=== PATIENT | male | born 1960 | race Caucasian/White ===

== ENCOUNTER 2019-02-21 17:21 | Emergency (ER) | payer BC ==
--- NOTE | 2019-02-21 18:08 | ED PDOC ---
HPI: Male Pain Time Seen by Provider: 02/21/19 17:34 Chief Complaint (Nursing): Male Genitourinary Chief Complaint (Provider): Male Genitourinary History Per: Patient Onset/Duration Of Symptoms: Days Current Symptoms Are (Timing): Still Present Additional Complaint(s): 59 y/o male with a PMHx of HTN and Arthritis presents to the ED for evaluation of right testicular pain. Patient reports that of noting dysuria, difficulty with urinary stream and hematuria since Thursday. Patient additionally reports of having subjective fever and chills since last Thursday associated with URI symptoms and thought it was due to that. Patient notes of experiencing some low back pain. Patient states that slowly over the course of today, he began to have right testicular pain that has been worsening since onset. Patient describes pain as throbbing and constant and worsens with any palpation. Patient believes there is swelling to the right scrotal area. Patient reports pain radiates to the right groin. Patient notes of taking Ibuprofen with minimal relief of pain. PMD: Dr. Marquez Past Medical History Reviewed: Historical Data, Nursing Documentation, Vital Signs Vital Signs: Last Vital Signs Temp 100.1 F H 02/21/19 17:32 Pulse 95 H 02/21/19 17:32 Resp 18 02/21/19 17:32 BP 143/78 02/21/19 17:32 Pulse Ox 97 02/21/19 17:32 - Medical History PMH: Arthritis, HTN - Surgical History Surgical History: No Surg Hx - Family History Family History: States: Hypertension - Social History Current smoker - smoking cessation education provided: No Alcohol: None Drugs: Denies - Home Medications Home Medications: Ambulatory Orders Medication Instructions Recorded Acetaminophen [Tylenol Extra 1,000 mg PO Q6 PRN #100 tablet 02/21/19 Strength] Ibuprofen [Motrin Tab] 600 mg PO Q8 PRN #60 tab 02/21/19 Levofloxacin [Levaquin] 500 mg PO BID #28 tablet 02/21/19 - Allergies Allergies/Adverse Reactions: Allergies Allergy/AdvReac Type Severity Reaction Status Date / Time No Known Allergies Allergy Verified 02/21/19 17:32 Review of Systems ROS Statement: Except As Marked, All Systems Reviewed And Found Negative (as per HPI) Constitutional: Positive for: Fever, Chills Genitourinary Male: Positive for: Dysuria, Hematuria, Scrotal Pain (right), Other (right testicular pain, difficulty with stream, right groin pain) Musculoskeletal: Positive for: Back Pain Physical Exam - Reviewed Nursing Documentation Reviewed: Yes Vital Signs Reviewed: Yes - Physical Exam Appears: Positive for: In Acute Distress (mild, painful distress) Skin: Negative for: Rash Gastrointestinal/Abdominal: Positive for: Soft, Distended (slight distention across the lower abdomen ), Guarding (some voluntary guarding at the suprapubic area) Male Genital Exam: Positive for: inguinal tenderness (Some right inguinal tednerness to palpation), testicular tenderness (R) (Exquisite tenderness to palpation of the right testicule), other (Performed with MALIHA Gutiérrez as head chef. Subtle edema of the right scrotal area. Normal cremasteric reflex. Questionable abnormal lie of the right testicle.). Negative for: lesions Lymphatic: Negative for: Inguinal Node Tenderness - Laboratory Results Result Diagrams: 02/21/19 18:00 02/21/19 18:00 - ECG O2 Sat by Pulse Oximetry: 97 (RA) Pulse Ox Interpretation: Normal Medical Decision Making Medical Decision Making: Time: 1744 Impression: Dysuria and Right Testicular Pain Differentials include but not limited to UTI, epididymitis, orchitis, hernia, cystitis and testicular torsion Plan: -- Type and Screen -- CMP -- Lact Acid, Plasma -- ED Urine Dipstick -- CBC with Differential -- PTT -- Prothrombin Time -- Chlamydia/GC RNA, TMA -- Morphine 2 mg IVP -- Toradol 15 mg IVP -- Tylenol 975 mg PO -- Blood Culture -- Urine Culture -- IV Insertion -- Urinalysis -- US Testes Duplex Complete Accession No. : [id number] Patient Name / ID : ZECHARIAH NASSAR / [id number] Exam Date : 02/21/2019 18:27:52 ( Approved ) Study Comment : Sex / Age : M / 59Y Creator : John Fontanez MD Dictator : John Fontanez MD Body Maker Machine Setter : Joinery Patternmaker : John Fontanez MD Approver2 : Report Date : 02/21/2019 18:51:39 My Comment : Date of service: 02/21/2019 HISTORY: severe RIGHT testicular pain TECHNIQUE: Realtime sonography through the scrotum with color and doppler flow. COMPARISON: None Available. FINDINGS: RIGHT TESTICLE: Measures 2.1 x 2.7 x 3.4 cm. Normal echo characteristics common no focal masses. Marked hypervascularity. RIGHT EPIDIDYMIS: Epididymal head measures 0.7 x 0.9 cm. Grossly unremarkable appearance with normal flow. LEFT TESTICLE: Measures 1.8 x 1.8 x 3.0 cm. Normal echotexture and flow. LEFT EPIDIDYMIS: Epididymal head measures 0.7 x 0.9 cm. Grossly unremarkable appearance with normal flow. HYDROCELE: Trace, unilateral-left. Likely physiological. VARICOCELE: None. OTHER FINDINGS: None. IMPRESSION: Hypervascular right testicle consistent with orchitis. Documented flow to both testicles without evidence of testicular torsion. Labs c/w UTI and early systemic infection (mild leukocytosis) DW pt findings. Pt will be given dose of IV Levaquin in ER to initiate treatment for UTI/orchitis and then discharged on oral levaquin with urgent followup with PMD/Urology. Scribe Attestation: Documented by Attila Basilio, acting as a scribe Heriberto Baldwin MD. Provider Scribe Attestation: All medical record entries made by the Scribe were at my direction and personally dictated by me. I have reviewed the chart and agree that the record accurately reflects my personal performance of the history, physical exam, medical decision making, and the department course for this patient. I have also personally directed, reviewed, and agree with the discharge instructions and disposition. Disposition - Clinical Impression Clinical Impression: Cystitis, Orchitis Counseled Patient/Family Regarding: Studies Performed, Diagnosis, Need For Followup, Rx Given - Disposition Referrals: Nasim Kingston MD [Staff Provider] - (PLEASE CALL TOMORROW FOR FOLLOWUP APPOINTMENT BY THE END OF THE WEEK) Michael Massey MD [Medical Doctor] - (FOLLOWUP WITH YOUR DOCTOR OR UROLOGIST IN 48 HOURS FOR REEVALUATION.) Disposition: Routine/Home Disposition Time: 20:00 Condition: STABLE Additional Instructions: Orchitis Definition Orchitis (or-THEO-tis) is an inflammation of one or both testicles. It is usually caused by a bacterial infection or by the mumps virus. Bacterial orchitis can be caused by sexually transmitted infections (STIs), particularly gonorrhea or chlamydia. Bacterial orchitis often results from epididymitis, an inflammation of the coiled tube (epididymis) at the back of the testicle that stores and carries sperm. In that case, it's called epididymo-orc hitis. Orchitis causes pain and can affect fertility. Medication can treat the causes of bacterial orchitis and can ease some signs and symptoms of viral orchitis. But it may take several weeks for scrotal tenderness to disappear. Symptoms Orchitis signs and symptoms usually develop suddenly and may include: * Swelling in one or both testicles * Pain ranging from mild to severe * Tenderness in one or both testicles, which may last for weeks * Fever * Nausea and vomiting The terms "testicle pain" and "groin pain" are sometimes used interchangeably. But groin pain occurs in the fold of skin between the thigh and abdomen not in the testicle. The causes of groin pain are different from the causes of testicle pain. When to see a doctor If you experience pain or swelling in your scrotum, especially if the pain occurs suddenly, see your doctor right away. A number of conditions can cause testicle pain, and some of the conditions require immediate treatment. One such condition involves twisting of the spermatic cord (testicular torsion), which may cause pain similar to that caused by orchitis. Your doctor can perform tests to determine which condition is causing your pain. Causes Orchitis can be caused by a bacterial or viral infection. Sometimes a cause of orchitis can't be determined (idiopathic orchitis). Bacterial orchitis Most often, bacterial orchitis is the result of epididymitis. Epididymitis usually is caused by an infection of the urethra or bladder that spreads to the epididymis. Often, the cause of the infection is an STI. Other causes of infection may be related to having been born with abnormalities in your urinary tract or having had a catheter or medical instruments inserted into your penis. Viral orchitis Viral orchitis is usually caused by the mumps virus. About one-third of males who contract the mumps after puberty develop orchitis, usually four to seven days after onset of the mumps. Risk factors Risk factors for nonsexually transmitted orchitis include: * Not being immunized against mumps * Having recurring urinary tract infections * Having surgery that involves the genitals or urinary tract * Being born with an abnormality in the urinary tract Sexual behaviors that can lead to STIs put you at risk of sexually transmitted orchitis. Those behaviors include having: * Multiple sexual partners * Sex with a partner who has an STI * Sex without a condom * A personal history of an STI Complications Complications of orchitis may include: * Testicular atrophy. Orchitis may eventually cause the affected testicle to shrink. * Scrotal abscess. The infected tissue fills with pus. * Repeated epididymitis. Orchitis can lead to recurrent episodes of epididymitis. * Infertility. Occasionally, orchitis may cause infertility or inadequate testosterone production (hypogonadism). But infertility and hypogonadism are less likely if orchitis affects only one testicle. * Infertility. Occasionally, orchitis may cause infertility. But infertility is less likely if orchitis affects only one testicle. Preparing for your appointment You may be referred to a doctor who specializes in urinary issues (urologist). To get all the information you need from your doctor, it helps to be well-prepa red for your appointment. Here's how. What you can do * Make a list of your symptoms, including any that may seem unrelated to the reason for which you scheduled the appointment. * Give your doctor a history of your childhood illnesses and immunizations. Also, be sure to let your doctor know about any recent illnesses, especially STIs. * Make a list of all medications, vitamins or supplements that you're currently taking. * Write down questions to ask your doctor. Preparing questions ahead of time will help you make the most of your time with your doctor. List your questions from most important to least important. For orchitis, some basic questions to ask your doctor include: * What's the most likely cause of my symptoms? * Are there any other possible causes? * What kinds of tests do I need? What's involved in those tests? * What treatments are available for orchitis? * How long will it take before I start to feel better? * Will this affect my ability to have children? * Are there any restrictions on sexual activity that I need to follow? Don't hesitate to ask other questions that arise during your appointment. What to expect from your doctor Your doctor is likely to ask you a number of questions. Being ready to answer them may reserve time to go over any points you want to spend more time on. Your doctor may ask: * When did you first begin experiencing symptoms? * How severe are your symptoms? * What treatments have you tried on your own? * What, if anything, seems to improve your symptoms? * What, if anything, appears to worsen your symptoms? * Have you had mumps or mumps vaccine? If so, when? * Have you had an STI? * Do you practice safe sex, such as using a condom? Tests and diagnosis Your doctor is likely to start with a physical exam to check for enlarged lymph nodes in your groin and an enlarged testicle on the affected side. Your doctor may also do a rectal examination to check for prostate enlargement or tenderness. After that, your doctor may recommend: * STI screening. A narrow swab is inserted into the end of your penis to obtain a sample of discharge from your urethra. The sample is checked in the laboratory for gonorrhea and chlamydia. * Urine test. A sample of your urine is analyzed for abnormalities in appearance, concentration or content. * Ultrasound. This imaging test may be used to rule out testicular torsion. Ultrasound with color Doppler can determine if the blood flow to your testicles is lower than normal indicating torsion or higher than normal, which helps confirm the diagnosis of orchitis. * Nuclear scan of the testicles. A radioactive tracer is inserted into your bloodstream. The scanner then maps blood flow to your testicles, which can indicate torsion or orchitis. Treatments and drugs Treatment depends on the cause of orchitis. Treating bacterial orchitis Antibiotics are needed to treat bacterial orchitis and epididymo-orchitis. If the cause of the bacterial infection is an STI, your sexual partner also needs treatment. Be sure to take the entire course of antibiotics prescribed by your doctor, even if your symptoms ease sooner, to ensure that the infection is gone. It may take several weeks for the tenderness to disappear. Resting, supporting the scrotum with an athletic strap, applying ice packs and taking pain medication can help relieve discomfort. Treating viral orchitis Treatment is aimed at relieving symptoms. Your doctor may recommend: * Nonsteroidal anti-inflammatory drugs, such as ibuprofen (Advil, Motrin IB, others) or naproxen (Aleve, others) * Bed rest and elevating your scrotum * Cold packs Most people with viral orchitis start to feel better in three to 10 days, although it may take several weeks for the scrotal tenderness to disappear. Treating idiopathic orchitis Your doctor may recommend antibiotics and anti-inflammatory medications. Lifestyle and home remedies To ease your discomfort: * Rest in bed * Lie down so that your scrotum is elevated * Apply cold packs to your scrotum as tolerated * Avoid lifting heavy objects Prevention To prevent orchitis: * Get immunized against mumps, the most common cause of viral orchitis * Practice safe sex, to help protect against STIs that can cause bacterial orchitis Prescriptions: Acetaminophen [Tylenol Extra Strength] 1,000 mg PO Q6 PRN #100 tablet PRN Reason: FEVER OR PAIN Ibuprofen [Motrin Tab] 600 mg PO Q8 PRN #60 tab PRN Reason: Pain, Moderate (4-7) Levofloxacin [Levaquin] 500 mg PO BID #28 tablet Instructions: Acute Cystitis (DC) Forms: [facility] ED School/Work Excuse
[2019-02-21 18:20] LABS: BASO % 0.2 % (0.0-2.0); EOS % 0.2 % (0.0-4.0); HEMOGLOBIN 13.9 g/dL (12.0-18.0); LYMPH # 0.7 K/uL (1.0-4.3); LYMPH % 5.8 % (20.0-40.0); MEAN CELL VOLUME 87.4 fl (80.0-94.0); MEAN CORPUSCULAR HEMOGLOBIN 29.6 pg (27.0-31.0); MEAN CORPUSCULAR HGB CONC 33.9 g/dL (33.0-37.0); MEAN PLATELET VOLUME 7.9 fl (7.2-11.7); MONO % 8.2 % (0.0-10.0); NEUT # 10.1 K/uL (1.8-7.0); NEUT % 85.6 % (50.0-75.0); PLATELET COUNT 231 K/uL (130-400); RBC 4.68 Mil/uL (4.40-5.90); RED CELL DISTRIBUTION WIDTH 12.9 % (11.5-14.5); WHITE BLOOD COUNT 11.8 K/uL (4.8-10.8)
[2019-02-21 18:32] LABS: INR 1.1
[2019-02-21 18:33] LABS: ALB/GLOB RATIO 1.3 (1.0-2.1); ALBUMIN 4.2 g/dL (3.5-5.0); ALT/SGPT 36 U/L (21-72); AST/SGOT 22 U/L (17-59); BLOOD UREA NITROGEN 18 mg/dl (9-20); GFR NON-AFRICAN AMERICAN > 60
[2019-02-21 18:34] LABS: PARTIAL THROMBOPLASTIN TIME 29.6 Seconds (25.6-37.1)
--- NOTE | 2019-02-21 18:55 | US ---
Date of service: 02/21/2019 HISTORY: severe RIGHT testicular pain TECHNIQUE: Realtime sonography through the scrotum with color and doppler flow. COMPARISON: None Available. FINDINGS: RIGHT TESTICLE: Measures 2.1 x 2.7 x 3.4 cm. Normal echo characteristics common no focal masses. Marked hypervascularity. RIGHT EPIDIDYMIS: Epididymal head measures 0.7 x 0.9 cm. Grossly unremarkable appearance with normal flow. LEFT TESTICLE: Measures 1.8 x 1.8 x 3.0 cm. Normal echotexture and flow. LEFT EPIDIDYMIS: Epididymal head measures 0.7 x 0.9 cm. Grossly unremarkable appearance with normal flow. HYDROCELE: Trace, unilateral-left. Likely physiological. VARICOCELE: None. OTHER FINDINGS: None. IMPRESSION: Hypervascular right testicle consistent with orchitis. Documented flow to both testicles without evidence of testicular torsion.
[2019-02-21] MEDS ORDERED: levoFLOXacin 500 mg in D5W 500 MG/100 ML BAG IVPB STA (19:24)
[2019-02-21] MEDS ORDERED: levoFLOXacin 500 mg in D5W 500 MG/100 ML BAG IVPB ONE (19:32)
[2019-02-21 19:50] LABS: SQUAMOUS EPITHIAL < 1 /hpf (0-5); URINE BACTERIA OCC (<OCC); URINE BILIRUBIN NEGATIVE (NEGATIVE); URINE BLOOD LARGE (NEGATIVE); URINE CLARITY CLOUDY (Clear); URINE COLOR YELLOW (YELLOW); URINE GLUCOSE (UA) NEG (NEGATIVE); URINE LEUKOCYTE ESTERASE LARGE Leu/uL (Negative); URINE PROTEIN 100 mg/dL (NEGATIVE); URINE UROBILINOGEN 0.2-1.0 mg/dL (0.2-1.0)
[2019-02-21 19:53] LABS: EOSINOPHIL 1 % (0-7); LYMPHOCYTE 8 % (20-50); MONOCYTE 9 % (0-10); NEUTROPHIL 82 % (42-75); PLATELET ESTIMATE NORMAL (NORMAL); TOTAL CELLS COUNTED 100
[2019-02-21] MEDS ORDERED: Sodium Chloride 0.9% 500 ML IV STA (20:08)
[2019-02-22 00:17] VITALS: BP 147/94; PULSE 102; RESP 20; TEMP 99.9
[2019-02-22] MEDS ORDERED: levoFLOXacin 500 mg in D5W 500 MG/100 ML BAG IVPB SCH (09:00)
[2019-02-22 09:01] VITALS: O2SAT 97
== END 2019-02-21 23:40 | disposition home or self-care (01) ==
LOC: H.ER 17:21
DX: N45.3 Epididymo-orchitis (principal); N30.91 Cystitis, unspecified with hematuria; I10 Essential (primary) hypertension
CPT/HCPCS: 80053; 81003; 83605; 85025; 85610; 85730; 86850; 86900; 87040; 87086; 87491; 87591; 93975; 96361; 96365; 96375; 99284; J1885; J2270; J7030

== ENCOUNTER 2019-02-25 16:58 | Inpatient (IN) | payer BC ==
--- NOTE | 2019-02-25 17:32 | ED PDOC ---
HPI: Male Pain Time Seen by Provider: 02/25/19 17:02 Chief Complaint (Nursing): Male Genitourinary Chief Complaint (Provider): RIGHT groin pain History Per: Patient, Family History/Exam Limitations: no limitations Associated Symptoms: Fever, Chills. denies: Nausea, Vomiting Additional Complaint(s): Diagnosed with RIGHT orchitis UTI 02/21. On levaquin but reports minimal relief of swelling and pain of RIGHT testicle. Seen by Dr Lainez Urology who recommended pt to to ER for further evaluatuion and possible admission. Past Medical History Reviewed: Historical Data, Nursing Documentation, Vital Signs Vital Signs: Last Vital Signs Temp 98.3 F 02/25/19 17:00 Pulse 56 L 02/25/19 17:00 Resp 18 02/25/19 17:00 BP 147/86 02/25/19 17:00 Pulse Ox 100 02/25/19 17:00 Primary Care Physician: Non CPH Provider - Medical History PMH: Arthritis, HTN - Family History Family History: States: Hypertension - Social History Current smoker - smoking cessation education provided: No - Home Medications Home Medications: Ambulatory Orders Medication Instructions Recorded Acetaminophen [Tylenol Extra 1,000 mg PO Q6 PRN #100 tablet 02/21/19 Strength] Ibuprofen [Motrin Tab] 600 mg PO Q8 PRN #60 tab 02/21/19 Levofloxacin [Levaquin] 500 mg PO BID #28 tablet 02/21/19 Irbesartan/Hydrochlorothiazide 1 tab PO DAILY 02/25/19 [Irbesartan-Hctz 300-12.5 mg Tb] - Allergies Allergies/Adverse Reactions: Allergies Allergy/AdvReac Type Severity Reaction Status Date / Time No Known Allergies Allergy Verified 02/21/19 17:32 Review of Systems ROS Statement: Except As Marked, All Systems Reviewed And Found Negative Constitutional: Positive for: Fever, Chills Genitourinary Male: Positive for: Scrotal Pain Physical Exam - Reviewed Nursing Documentation Reviewed: Yes Vital Signs Reviewed: Yes - Physical Exam Appears: Positive for: Non-toxic, In Acute Distress Head Exam: Positive for: ATRAUMATIC, NORMOCEPHALIC Skin: Positive for: Warm, Dry Eye Exam: Positive for: EOMI, PERRL ENT: Positive for: Pharynx Is (clear) Neck: Positive for: Painless ROM, Supple Cardiovascular/Chest: Positive for: Regular Rate, Rhythm. Negative for: Murmur Respiratory: Negative for: Respiratory Distress Gastrointestinal/Abdominal: Positive for: Soft. Negative for: Tenderness Male Genital Exam: Positive for: inguinal tenderness (right), scrotum tenderness (R), testicular tenderness (R), other (TTP right scrotum) Back: Positive for: Normal Inspection. Negative for: L CVA Tenderness, R CVA Tenderness Extremity: Positive for: Normal ROM. Negative for: Deformity Lymphatic: Positive for: Other (tenderness in area of RIGHT inguinal folds and pubic area, no discrete mass/nodules palpable) Neurological/Psych: Positive for: Awake, Alert. Negative for: Motor/Sensory Deficits - Laboratory Results Result Diagrams: 02/25/19 17:55 02/25/19 17:55 - ECG O2 Sat by Pulse Oximetry: 100 - Progress ED Course And Treament: DW Dr Gaxiola Urology Pt with UTI and orchitis, on antibiotics but no improved. Needs hospitalization for IV antibiotics Disposition - Clinical Impression Clinical Impression: Orchitis Discussed With DrMaru: Arash Resendez Doctor Will See Patient In The: ED Counseled Patient/Family Regarding: Studies Performed, Diagnosis - Disposition Disposition Time: 17:30 Condition: FAIR - Pt Status Changed To: Hospital Disposition Of: Inpatient - Admit Certification Admit to Inpatient:: After my assessment, the patient will require hospitalization for at least two midnights. This is because of the severity of symptoms shown, intensity of services needed, and/or the medical risk in this patient being treated as an outpatient. - POA Present On Arrival: None
[2019-02-25 17:55] LABS: VENOUS BLOOD GAS BASE EXCESS 3.6 mmol/L (0.0-2.0); VENOUS BLOOD GAS PCO2 61 mmHg (40-60); VENOUS BLOOD GAS PO2 17 mm/Hg (30-55); VENOUS BLOOD PH 7.32 (7.32-7.43)
[2019-02-25 18:03] LABS: BASO % 0.2 % (0.0-2.0); EOS # 0.1 K/uL (0.0-0.7); EOS % 0.8 % (0.0-4.0); HEMOGLOBIN 13.1 g/dL (12.0-18.0); LYMPH # 1.3 K/uL (1.0-4.3); MEAN CORPUSCULAR HEMOGLOBIN 29.3 pg (27.0-31.0); MEAN CORPUSCULAR HGB CONC 33.3 g/dL (33.0-37.0); MEAN PLATELET VOLUME 7.8 fl (7.2-11.7); MONO # 0.9 K/uL (0.0-0.8); NEUT # 10.6 K/uL (1.8-7.0); RBC 4.46 Mil/uL (4.40-5.90); WHITE BLOOD COUNT 12.9 K/uL (4.8-10.8)
[2019-02-25 18:10] LABS: INR 1.2; PROTHROMBIN TIME 14.1 Seconds (9.8-13.1)
[2019-02-25 18:12] LABS: PARTIAL THROMBOPLASTIN TIME 30.4 Seconds (25.6-37.1)
--- NOTE | 2019-02-25 18:19 | RAD ---
Date of service: 02/25/2019 HISTORY: admission COMPARISON: No prior. FINDINGS: LUNGS: No active pulmonary disease. PLEURA: No significant pleural effusion identified, no pneumothorax apparent. CARDIOVASCULAR: No atherosclerotic calcification present Normal. OSSEOUS STRUCTURES: No significant abnormalities. VISUALIZED UPPER ABDOMEN: Normal. OTHER FINDINGS: None. IMPRESSION: No active disease.
--- NOTE | 2019-02-25 18:23 | CP.PCM.HP ---
<Teodora Ricks - Last Filed: 02/25/19 20:04> History of Present Illness - History of Present Illness History of Present Illness: 59 y/o male with a PMHx of HTN and Arthritis presents to the ED for evaluation of right testicular pain and induration. Patient reports ED visit on the and was Rx with Levaquin with no improvement of pain. He also reports associated fever and chills. Patient also reports some dysuria, difficulty with urinary stream and hematuria since last week. Patient describes pain as throbbing and constant and worsens with any palpation. Patient notes of taking Ibuprofen with minimal relief of pain. He went to Dr Lainez office who recommends came to hospital because he needs IV abx. PMD: Dr. Marquez Urologist: Dr Lainez PMH: Arthritis, HTN FMH: HTN PSH: denies NKDA Meds: as bellow, reviewed SH: denies tobacco, etoh or ilicit drugs use. Present on Admission - Present on Admission Any Indicators Present on Admission: No Review of Systems - Review of Systems All systems: reviewed and no additional remarkable complaints except (HPI) Past Patient History - Past Social History Smoking Status: Never Smoked - CARDIAC Hx Hypertension: Yes - MUSCULOSKELETAL/RHEUMATOLOGICAL Hx Arthritis: Yes - PSYCHIATRIC Hx Substance Use: No Meds Allergies/Adverse Reactions: Allergies Allergy/AdvReac Type Severity Reaction Status Date / Time No Known Allergies Allergy Verified 02/21/19 17:32 Physical Exam - Constitutional Appears: No Acute Distress - Head Exam Head Exam: NORMAL INSPECTION - Eye Exam Eye Exam: EOMI, PERRL - ENT Exam ENT Exam: Mucous Membranes Moist - Neck Exam Neck exam: Positive for: Full Rom. Negative for: Lymphadenopathy, Tenderness, Thyromegaly - Respiratory Exam Respiratory Exam: Clear to Auscultation Bilateral, NORMAL BREATHING PATTERN. absent: Chest Wall Tenderness, Rales, Wheezes - Cardiovascular Exam Cardiovascular Exam: REGULAR RHYTHM, +S1, +S2. absent: Tachycardia, Systolic Murmur - GI/Abdominal Exam GI & Abdominal Exam: Normal Bowel Sounds, Soft. absent: Distended, Tenderness - Exam Exam: Scrotal Swelling, Testicular Tenderness. 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 Results - Vital Signs Recent Vital Signs: Last Vital Signs Temp 98.3 F 02/25/19 17:00 Pulse 56 L 02/25/19 17:00 Resp 18 02/25/19 17:00 BP 147/86 02/25/19 17:00 Pulse Ox 100 02/25/19 17:40 - Labs Result Diagrams: 02/25/19 17:55 02/25/19 17:55 Labs: Laboratory Results - last 24 hr 02/25/19 02/25/19 02/25/19 17:50 17:55 17:55 WBC 12.9 H RBC 4.46 Hgb 13.1 Hct 39.3 MCV 88.0 MCH 29.3 MCHC 33.3 RDW 13.0 Plt Count 361 D MPV 7.8 Neut % (Auto) 82.0 H Lymph % (Auto) 10.0 L [place] % (Auto) 7.0 Eos % (Auto) 0.8 Baso % (Auto) 0.2 Neut # (Auto) 10.6 H Lymph # (Auto) 1.3 [place] # (Auto) 0.9 H Eos # (Auto) 0.1 Baso # (Auto) 0.0 PT 14.1 H INR 1.2 APTT 30.4 pO2 17 L VBG pH 7.32 VBG pCO2 61 H VBG HCO3 25.6 VBG Total CO2 33.3 H VBG O2 Sat (Calc) 23.3 L VBG Base Excess 3.6 H VBG Potassium 4.4 Sodium 140.0 Chloride 104.0 Glucose 95 Lactate 1.4 FiO2 21.0 Venous Blood Potassium 4.4 Assessment & Plan - Assessment and Plan (Free Text) Assessment: 59 yo male patient admitted with R Orchitis Plan: Orchitis - admit to med/surg - VSS - Leukocytosis 12.9, lactate 1.4 - start pain management - s/p ceftriaxone IV once - continue Ceftriaxone IV 1g daily - Abd CT: f/u official read - f/u labs in am - f/u blood and urine cx HTN - chronic controlled - Continue home meds DVT ppx - lovenox daily GI ppx: protonix Case discussed with Dr Resendez. <Arash Resendez - Last Filed: 02/26/19 09:22> Results - Vital Signs Recent Vital Signs: Last Vital Signs Temp 98.2 F 02/26/19 08:07 Pulse 65 02/26/19 08:07 Resp 18 02/26/19 08:07 BP 137/88 02/26/19 08:07 Pulse Ox 96 02/26/19 08:07 - Labs Result Diagrams: 02/26/19 05:35 02/26/19 05:35 Labs: Laboratory Results - last 24 hr 02/25/19 02/25/19 02/25/19 17:50 17:55 17:55 WBC 12.9 H RBC 4.46 Hgb 13.1 Hct 39.3 MCV 88.0 MCH 29.3 MCHC 33.3 RDW 13.0 Plt Count 361 D MPV 7.8 Neut % (Auto) 82.0 H Lymph % (Auto) 10.0 L [place] % (Auto) 7.0 Eos % (Auto) 0.8 Baso % (Auto) 0.2 Neut # (Auto) 10.6 H Lymph # (Auto) 1.3 [place] # (Auto) 0.9 H Eos # (Auto) 0.1 Baso # (Auto) 0.0 Neutrophils % (Manual) Lymphocytes % (Manual) Monocytes % (Manual) Eosinophils % (Manual) Platelet Estimate RBC Morphology PT INR APTT pO2 17 L VBG pH 7.32 VBG pCO2 61 H VBG HCO3 25.6 VBG Total CO2 33.3 H VBG O2 Sat (Calc) 23.3 L VBG Base Excess 3.6 H VBG Potassium 4.4 Sodium 140.0 140 Chloride 104.0 103 Glucose 95 Lactate 1.4 FiO2 21.0 Potassium 4.6 Carbon Dioxide 28 Anion Gap 14 BUN 21 H Creatinine 0.9 Est GFR ( Amer) > 60 Est GFR (Non-Af Amer) > 60 Random Glucose 99 Calcium 9.4 Total Bilirubin 0.3 AST 37 ALT 47 Alkaline Phosphatase 74 Total Protein 7.3 Albumin 3.9 Globulin 3.4 Albumin/Globulin Ratio 1.1 Venous Blood Potassium 4.4 Urine Color Urine Clarity Urine pH Ur Specific [place] Urine Protein Urine Glucose (UA) Urine Ketones Urine Blood Urine Nitrate Urine Bilirubin Urine Urobilinogen Ur Leukocyte Esterase Urine RBC (Auto) Urine Microscopic WBC Ur Squamous Epith Cells Urine Bacteria 02/25/19 02/25/19 02/26/19 17:55 20:53 05:35 WBC 13.0 H RBC 4.19 L Hgb 12.3 Hct 36.9 MCV 88.1 MCH 29.3 MCHC 33.2 RDW 12.7 Plt Count 350 MPV 7.8 Neut % (Auto) 84.9 H Lymph % (Auto) 7.9 L [place] % (Auto) 6.4 Eos % (Auto) 0.6 Baso % (Auto) 0.2 Neut # (Auto) 11.0 H Lymph # (Auto) 1.0 [place] # (Auto) 0.8 Eos # (Auto) 0.1 Baso # (Auto) 0.0 Neutrophils % (Manual) 81 H Lymphocytes % (Manual) 10 L Monocytes % (Manual) 8 Eosinophils % (Manual) 1 Platelet Estimate Normal RBC Morphology Normal PT 14.1 H INR 1.2 APTT 30.4 pO2 VBG pH VBG pCO2 VBG HCO3 VBG Total CO2 VBG O2 Sat (Calc) VBG Base Excess VBG Potassium Sodium Chloride Glucose Lactate FiO2 Potassium Carbon Dioxide Anion Gap BUN Creatinine Est GFR ( Amer) Est GFR (Non-Af Amer) Random Glucose Calcium Total Bilirubin AST ALT Alkaline Phosphatase Total Protein Albumin Globulin Albumin/Globulin Ratio Venous Blood Potassium Urine Color Yellow Urine Clarity Slighty-cloudy Urine pH 6.0 Ur Specific [place] 1.010 Urine Protein 100 Urine Glucose (UA) Neg Urine Ketones Negative Urine Blood Large Urine Nitrate Negative Urine Bilirubin Negative Urine Urobilinogen 0.2-1.0 Ur Leukocyte Esterase Small Urine RBC (Auto) 33 H Urine Microscopic WBC 5 Ur Squamous Epith Cells 3 Urine Bacteria Rare 02/26/19 05:35 WBC RBC Hgb Hct MCV MCH MCHC RDW Plt Count MPV Neut % (Auto) Lymph % (Auto) [place] % (Auto) Eos % (Auto) Baso % (Auto) Neut # (Auto) Lymph # (Auto) [place] # (Auto) Eos # (Auto) Baso # (Auto) Neutrophils % (Manual) Lymphocytes % (Manual) Monocytes % (Manual) Eosinophils % (Manual) Platelet Estimate RBC Morphology PT INR APTT pO2 VBG pH VBG pCO2 VBG HCO3 VBG Total CO2 VBG O2 Sat (Calc) VBG Base Excess VBG Potassium Sodium 138 Chloride 101 Glucose Lactate FiO2 Potassium 3.9 Carbon Dioxide 29 Anion Gap 12 BUN 17 Creatinine 0.9 Est GFR ( Amer) > 60 Est GFR (Non-Af Amer) > 60 Random Glucose 100 Calcium 8.7 Total Bilirubin AST ALT Alkaline Phosphatase Total Protein Albumin Globulin Albumin/Globulin Ratio Venous Blood Potassium Urine Color Urine Clarity Urine pH Ur Specific [place] Urine Protein Urine Glucose (UA) Urine Ketones Urine Blood Urine Nitrate Urine Bilirubin Urine Urobilinogen Ur Leukocyte Esterase Urine RBC (Auto) Urine Microscopic WBC Ur Squamous Epith Cells Urine Bacteria Attending/Attestation - Attestation I have personally seen and examined this patient.: Yes I have fully participated in the care of the patient.: Yes I have reviewed all pertinent clinical information: Yes Notes (Text): 02/26/19 09:22 Patient seen and examined with resident. Case discussed and agreed with assessment and plan of management.
[2019-02-25] MEDS ORDERED: Iohexol 300 100 ML IJ ONE (18:32)
[2019-02-25] MEDS ORDERED: Sodium Chloride 0.9% 50 ML IV ONE (18:32)
[2019-02-25 18:34] LABS: ALB/GLOB RATIO 1.1 (1.0-2.1); ALBUMIN 3.9 g/dL (3.5-5.0); ALT/SGPT 47 U/L (21-72); AST/SGOT 37 U/L (17-59); BLOOD UREA NITROGEN 21 mg/dl (9-20); CALCIUM 9.4 mg/dL (8.4-10.2); GFR NON-AFRICAN AMERICAN > 60
[2019-02-25] MEDS ORDERED: cefTRIAXone 2 GM in Sodium Chloride 0.9% 100 ML IVPB STA (18:42)
[2019-02-25 21:09] LABS: SQUAMOUS EPITHIAL 3 /hpf (0-5); URINE BACTERIA RARE (<OCC); URINE BILIRUBIN NEGATIVE (NEGATIVE); URINE BLOOD LARGE (NEGATIVE); URINE CLARITY SLIGHTY-CLOUDY (Clear); URINE COLOR YELLOW (YELLOW); URINE GLUCOSE (UA) NEG (NEGATIVE); URINE LEUKOCYTE ESTERASE SMALL Leu/uL (Negative); URINE PROTEIN 100 mg/dL (NEGATIVE); URINE UROBILINOGEN 0.2-1.0 mg/dL (0.2-1.0)
[2019-02-26 07:01] LABS: BASO % 0.2 % (0.0-2.0); EOS # 0.1 K/uL (0.0-0.7); EOS % 0.6 % (0.0-4.0); HEMOGLOBIN 12.3 g/dL (12.0-18.0); LYMPH % 7.9 % (20.0-40.0); MEAN CELL VOLUME 88.1 fl (80.0-94.0); MEAN CORPUSCULAR HEMOGLOBIN 29.3 pg (27.0-31.0); MEAN CORPUSCULAR HGB CONC 33.2 g/dL (33.0-37.0); MEAN PLATELET VOLUME 7.8 fl (7.2-11.7); MONO # 0.8 K/uL (0.0-0.8); MONO % 6.4 % (0.0-10.0); NEUT % 84.9 % (50.0-75.0); NRBC % 0.4 % (0.0-0.0); PLATELET COUNT 350 K/uL (130-400); RBC 4.19 Mil/uL (4.40-5.90); RED CELL DISTRIBUTION WIDTH 12.7 % (11.5-14.5)
[2019-02-26 07:07] LABS: BLOOD UREA NITROGEN 17 mg/dl (9-20); CALCIUM 8.7 mg/dL (8.4-10.2); GFR NON-AFRICAN AMERICAN > 60
[2019-02-26 08:00] LABS: EOSINOPHIL 1 % (0-7); LYMPHOCYTE 10 % (20-50); MONOCYTE 8 % (0-10); NEUTROPHIL 81 % (42-75); PLATELET ESTIMATE NORMAL (NORMAL); TOTAL CELLS COUNTED 100
[2019-02-26] MEDS: Enoxaparin 40 mg Syringe SC SCH (09:27)
[2019-02-26] MEDS: Pantoprazole 40 mg EC Tab PO SCH (09:28)
--- NOTE | 2019-02-26 13:15 | CT ---
Date of service: 02/25/2019 PROCEDURE: CT Abdomen and Pelvis with contrast HISTORY: R groin pain.+orchitis r/o extending abscess COMPARISON: None. TECHNIQUE: Contrast dose: 95 mL Omnipaque 300 Radiation dose: Total exam DLP = 477.6 mGy-cm. This CT exam was performed using one or more of the following dose reduction techniques: Automated exposure control, adjustment of the mA and/or kV according to patient size, and/or use of iterative reconstruction technique. FINDINGS: LOWER THORAX: Unremarkable. LIVER: Unremarkable. No gross lesion or ductal dilatation. GALLBLADDER AND BILE DUCTS: Unremarkable. PANCREAS: Unremarkable. No gross lesion or ductal dilatation. SPLEEN: Unremarkable. ADRENALS: Unremarkable. No mass. KIDNEYS AND URETERS: Unremarkable. No hydronephrosis. No solid mass. VASCULATURE: Unremarkable. No aortic aneurysm. No aortic atherosclerotic calcification or mural plaque present. BOWEL: Mild descending colonic and sigmoid diverticulosis. No obstruction. No gross mural thickening. APPENDIX: Normal appendix. PERITONEUM: Tiny fat containing umbilical hernia. No free fluid. No free air. LYMPH NODES: Unremarkable. No enlarged lymph nodes. BLADDER: Unremarkable. REPRODUCTIVE: Diffuse scrotal thickening/soft tissue swelling. No discrete abscess. Questionable right-sided varicocele. Prominent prostate. BONES: No acute fracture. OTHER FINDINGS: None. IMPRESSION: Diffuse scrotal thickening/soft tissue swelling without discrete abscess. Questionable right-sided varicocele. No obstructive mass or adenopathy.
--- NOTE | 2019-02-26 13:52 | CP.PCM.PN ---
Subjective - Date & Time of Evaluation Date of Evaluation: 02/26/19 Time of Evaluation: 09:30 - Subjective Subjective: Patient seen and examined. Claimed pain on right groin has improved. Objective - Vital Signs/Intake and Output Vital Signs (last 24 hours): Temp Pulse Resp BP Pulse Ox 98.2 F 65 18 137/88 96 02/26/19 08:07 02/26/19 09:27 02/26/19 08:07 02/26/19 09:27 02/26/19 08:07 - Medications Medications: Current Medications Acetaminophen (Tylenol 325mg Tab) 650 mg PO Q4 PRN PRN Reason: Pain, Mild (1-3) Docusate Sodium (Colace) 100 mg PO BID [facility] Last Admin: 02/26/19 09:28 Dose: 100 mg Doxycycline Hyclate (Doryx) 100 mg PO Q12 [facility]; Protocol Last Admin: 02/26/19 09:51 Dose: 100 mg Enoxaparin Sodium (Lovenox) 40 mg SC DAILY [facility]; Protocol Last Admin: 02/26/19 09:27 Dose: 40 mg Hydrochlorothiazide (Microzide) 12.5 mg PO DAILY [facility] Last Admin: 02/26/19 09:28 Dose: 12.5 mg Ceftriaxone Sodium 1 gm/ (Sodium Chloride) 100 mls @ 100 mls/hr IVPB DAILY [facility]; Protocol Last Admin: 02/26/19 09:24 Dose: 100 mls/hr Ibuprofen (Motrin Tab) 400 mg PO Q6H PRN PRN Reason: Pain, moderate (4-7) Ketorolac Tromethamine (Toradol) 30 mg IVP Q6 PRN PRN Reason: Pain, severe (8-10) Last Admin: 02/26/19 04:21 Dose: 30 mg Losartan Potassium (Cozaar) 100 mg PO DAILY [facility] Last Admin: 02/26/19 09:27 Dose: 100 mg Pantoprazole Sodium (Protonix Ec Tab) 40 mg PO DAILY [facility] Last Admin: 02/26/19 09:28 Dose: 40 mg - Labs Labs: 02/26/19 05:35 02/26/19 05:35 PT 14.1 Seconds (9.8-13.1) H 02/25/19 17:55 INR 1.2 02/25/19 17:55 APTT 30.4 Seconds (25.6-37.1) 02/25/19 17:55 - Constitutional Appears: No Acute Distress - Head Exam Head Exam: ATRAUMATIC - Eye Exam Eye Exam: absent: Scleral icterus - ENT Exam ENT Exam: Mucous Membranes Moist - Neck Exam Neck Exam: absent: Meningismus - Respiratory Exam Respiratory Exam: absent: Rales, Rhonchi, Wheezes, Respiratory Distress - Cardiovascular Exam Cardiovascular Exam: REGULAR RHYTHM, +S1, +S2 - GI/Abdominal Exam GI & Abdominal Exam: Soft, Tenderness (suprapubic still with tenderness but much less than yesterday) - Rectal Exam Rectal Exam: Deferred - Extremities Exam Extremities Exam: absent: Pedal Edema - Neurological Exam Neurological Exam: Alert, Oriented x3 - Psychiatric Exam Psychiatric exam: Normal Affect - Skin Skin Exam: Dry, Intact Assessment and Plan - Assessment and Plan (Free Text) Assessment: 59 yo male with history of HTN admitted with pain and swelling of the right scrotum associated with fever not responding to oral antibiotics. 1. Orchitis patient admitted improvement with less pain and tenderness on right groin continue IV Rocephin Dr Lainez on urology consult 2. HTN BP controlled continue Losartan and HCTZ 3. DVT prophylaxis on Lovenox
--- NOTE | 2019-02-26 17:35 | CARD ---
APPROVED REPORT Date of service: 02/25/2019 EKG Measurement Heart [id number] <Conclusion> Normal sinus rhythm Normal ECG
[2019-02-27 06:52] LABS: BASO % 0.3 % (0.0-2.0); EOS # 0.1 K/uL (0.0-0.7); EOS % 0.8 % (0.0-4.0); HEMOGLOBIN 12.8 g/dL (12.0-18.0); LYMPH # 1.2 K/uL (1.0-4.3); MEAN CELL VOLUME 87.7 fl (80.0-94.0); MEAN CORPUSCULAR HEMOGLOBIN 29.3 pg (27.0-31.0); MEAN CORPUSCULAR HGB CONC 33.4 g/dL (33.0-37.0); MEAN PLATELET VOLUME 7.7 fl (7.2-11.7); MONO # 0.8 K/uL (0.0-0.8); MONO % 8.4 % (0.0-10.0); NEUT # 7.3 K/uL (1.8-7.0); NEUT % 77.5 % (50.0-75.0); NRBC % 0.1 % (0.0-0.0); RBC 4.39 Mil/uL (4.40-5.90); RED CELL DISTRIBUTION WIDTH 12.5 % (11.5-14.5); WHITE BLOOD COUNT 9.4 K/uL (4.8-10.8)
[2019-02-27 07:09] LABS: BLOOD UREA NITROGEN 15 mg/dl (9-20); GFR NON-AFRICAN AMERICAN > 60
[2019-02-27] MEDS: Enoxaparin 40 mg Syringe SC SCH (08:43)
[2019-02-27] MEDS: Pantoprazole 40 mg EC Tab PO SCH (08:44)
--- NOTE | 2019-02-27 17:53 | CP.PCM.PN ---
Subjective - Date & Time of Evaluation Date of Evaluation: 02/27/19 Time of Evaluation: 10:30 - Subjective Subjective: Patient seen and examined. Admitted much improvements with regards to pain on suprapubic and groin areas. Objective - Vital Signs/Intake and Output Vital Signs (last 24 hours): Temp Pulse Resp BP Pulse Ox 97.7 F 70 20 130/84 97 02/27/19 16:53 02/27/19 16:53 02/27/19 16:53 02/27/19 16:53 02/27/19 16:53 - Medications Medications: Current Medications Acetaminophen (Tylenol 325mg Tab) 650 mg PO Q4 PRN PRN Reason: Pain, Mild (1-3) Docusate Sodium (Colace) 100 mg PO BID [facility] Last Admin: 02/27/19 16:51 Dose: 100 mg Doxycycline Hyclate (Doryx) 100 mg PO Q12 [facility]; Protocol Last Admin: 02/27/19 08:43 Dose: 100 mg Enoxaparin Sodium (Lovenox) 40 mg SC DAILY [facility]; Protocol Last Admin: 02/27/19 08:43 Dose: 40 mg Hydrochlorothiazide (Microzide) 12.5 mg PO DAILY [facility] Last Admin: 02/27/19 08:44 Dose: 12.5 mg Ceftriaxone Sodium 1 gm/ (Sodium Chloride) 100 mls @ 100 mls/hr IVPB DAILY [facility]; Protocol Last Admin: 02/27/19 09:08 Dose: 100 mls/hr Ibuprofen (Motrin Tab) 400 mg PO Q6H PRN PRN Reason: Pain, moderate (4-7) Last Admin: 02/27/19 16:52 Dose: 400 mg Ketorolac Tromethamine (Toradol) 30 mg IVP Q6 PRN PRN Reason: Pain, severe (8-10) Last Admin: 02/27/19 08:38 Dose: 30 mg Losartan Potassium (Cozaar) 100 mg PO DAILY [facility] Last Admin: 02/27/19 08:44 Dose: 100 mg Pantoprazole Sodium (Protonix Ec Tab) 40 mg PO DAILY [facility] Last Admin: 02/27/19 08:44 Dose: 40 mg - Labs Labs: 02/27/19 05:45 02/27/19 05:45 PT 14.1 Seconds (9.8-13.1) H 02/25/19 17:55 INR 1.2 02/25/19 17:55 APTT 30.4 Seconds (25.6-37.1) 02/25/19 17:55 - Constitutional Appears: No Acute Distress - Head Exam Head Exam: ATRAUMATIC - Eye Exam Eye Exam: absent: Scleral icterus - ENT Exam ENT Exam: Mucous Membranes Moist - Neck Exam Neck Exam: absent: Meningismus - Respiratory Exam Respiratory Exam: absent: Rales, Rhonchi, Wheezes, Respiratory Distress - Cardiovascular Exam Cardiovascular Exam: REGULAR RHYTHM, +S1, +S2 - GI/Abdominal Exam GI & Abdominal Exam: Soft, Tenderness (mild tenderness on right groin) - Rectal Exam Rectal Exam: Deferred - Extremities Exam Extremities Exam: absent: Pedal Edema - Neurological Exam Neurological Exam: Alert, Oriented x3 - Psychiatric Exam Psychiatric exam: Normal Affect - Skin Skin Exam: Dry, Intact Assessment and Plan - Assessment and Plan (Free Text) Assessment: 59 yo male with history of HTN admitted with pain and swelling of the right scrotum associated with fever not responding to oral antibiotics. 1. Orchitis improving WBC down to normal level continue IV Rocephin Dr Lainez on urology consult 2. HTN BP controlled continue Losartan and HCTZ 3. DVT prophylaxis on Lovenox
[2019-02-28 06:54] LABS: BASO % 0.2 % (0.0-2.0); EOS # 0.1 K/uL (0.0-0.7); HEMOGLOBIN 13.5 g/dL (12.0-18.0); LYMPH # 1.1 K/uL (1.0-4.3); LYMPH % 11.5 % (20.0-40.0); MEAN CELL VOLUME 87.7 fl (80.0-94.0); MEAN CORPUSCULAR HEMOGLOBIN 28.7 pg (27.0-31.0); MEAN CORPUSCULAR HGB CONC 32.8 g/dL (33.0-37.0); MEAN PLATELET VOLUME 7.5 fl (7.2-11.7); MONO # 0.9 K/uL (0.0-0.8); MONO % 9.1 % (0.0-10.0); NEUT # 7.5 K/uL (1.8-7.0); NEUT % 78.2 % (50.0-75.0); RBC 4.71 Mil/uL (4.40-5.90); RED CELL DISTRIBUTION WIDTH 12.7 % (11.5-14.5); WHITE BLOOD COUNT 9.5 K/uL (4.8-10.8)
[2019-02-28] MEDS: Enoxaparin 40 mg Syringe SC SCH (08:51)
[2019-02-28] MEDS: Pantoprazole 40 mg EC Tab PO SCH (08:52)
--- NOTE | 2019-02-28 10:24 | CP.PCM.PN ---
<Jaymie Venegas - Last Filed: 02/28/19 16:41> Subjective - Date & Time of Evaluation Date of Evaluation: 02/28/19 Time of Evaluation: 08:00 - Subjective Subjective: Pt seen at bedside doing well. Reports persistent pain R inguinal region and R testicle, less swelling, no urethral discharge. Denies fevers, chills, dysuria. Objective - Vital Signs/Intake and Output Vital Signs (last 24 hours): Temp Pulse Resp BP Pulse Ox 97.3 F L 74 20 148/90 98 02/28/19 07:56 02/28/19 08:54 02/28/19 07:56 02/28/19 08:54 02/28/19 07:56 - Medications Medications: Current Medications Acetaminophen (Tylenol 325mg Tab) 650 mg PO Q4 PRN PRN Reason: Pain, Mild (1-3) Docusate Sodium (Colace) 100 mg PO BID [facility] Last Admin: 02/28/19 08:52 Dose: 100 mg Doxycycline Hyclate (Doryx) 100 mg PO Q12 [facility]; Protocol Last Admin: 02/28/19 08:52 Dose: 100 mg Enoxaparin Sodium (Lovenox) 40 mg SC DAILY [facility]; Protocol Last Admin: 02/28/19 08:51 Dose: 40 mg Hydrochlorothiazide (Microzide) 12.5 mg PO DAILY [facility] Last Admin: 02/28/19 08:52 Dose: 12.5 mg Ceftriaxone Sodium 1 gm/ (Sodium Chloride) 100 mls @ 100 mls/hr IVPB DAILY [facility]; Protocol Last Admin: 02/28/19 08:50 Dose: 100 mls/hr Ibuprofen (Motrin Tab) 400 mg PO Q6H PRN PRN Reason: Pain, moderate (4-7) Last Admin: 02/28/19 06:54 Dose: 400 mg Ketorolac Tromethamine (Toradol) 30 mg IVP Q6 PRN PRN Reason: Pain, severe (8-10) Last Admin: 02/27/19 08:38 Dose: 30 mg Losartan Potassium (Cozaar) 100 mg PO DAILY [facility] Last Admin: 02/28/19 08:54 Dose: 100 mg Pantoprazole Sodium (Protonix Ec Tab) 40 mg PO DAILY [facility] Last Admin: 02/28/19 08:52 Dose: 40 mg - Labs Labs: 02/28/19 06:10 02/27/19 05:45 PT 14.1 Seconds (9.8-13.1) H 02/25/19 17:55 INR 1.2 02/25/19 17:55 APTT 30.4 Seconds (25.6-37.1) 02/25/19 17:55 - Constitutional Appears: Non-toxic - Head Exam Head Exam: NORMAL INSPECTION - Eye Exam Eye Exam: EOMI - ENT Exam ENT Exam: Mucous Membranes Moist - Respiratory Exam Respiratory Exam: Clear to Ausculation Bilateral. absent: Rales, Rhonchi, Wheezes - Cardiovascular Exam Cardiovascular Exam: RRR, +S1, +S2 - GI/Abdominal Exam GI & Abdominal Exam: Soft, Normal Bowel Sounds. absent: Tenderness - Exam Exam: Scrotal Swelling, Testicular Tenderness. absent: Uretheral Discharge Additional comments: Tenderness R inguinal region, R testicle tender and hard to palpation, no urethral discharge - Extremities Exam Extremities Exam: Normal Inspection. absent: Pedal Edema - Neurological Exam Neurological Exam: Alert, Awake, Oriented x3 Assessment and Plan - Assessment and Plan (Free Text) Assessment: 59 yo male with history of HTN admitted with pain and swelling of the right scrotum associated with fever not responding to oral antibiotics admitted for Orchitis Orchitis improving WBC resolved continue IV Rocephin, Doxycycline 100mg PO BID Dr Lainez on urology consult GC/CHL pending Blood Cx no growth @ 48hr, Urine Cx negative HTN BP controlled continue Losartan and HCTZ Diet Heart healthy GI PPX Protonix 40 QD DVT prophylaxis Lovenox 40 SC QD <Jessica Prasad - Last Filed: 02/28/19 17:33> Objective - Vital Signs/Intake and Output Vital Signs (last 24 hours): Temp Pulse Resp BP Pulse Ox 97.8 F 62 18 122/82 99 02/28/19 16:11 02/28/19 16:11 02/28/19 16:11 02/28/19 16:11 02/28/19 16:11 - Medications Medications: Current Medications Acetaminophen (Tylenol 325mg Tab) 650 mg PO Q4 PRN PRN Reason: Pain, Mild (1-3) Docusate Sodium (Colace) 100 mg PO BID [facility] Last Admin: 02/28/19 16:55 Dose: 100 mg Doxycycline Hyclate (Doryx) 100 mg PO Q12 [facility]; Protocol Last Admin: 02/28/19 08:52 Dose: 100 mg Enoxaparin Sodium (Lovenox) 40 mg SC DAILY [facility]; Protocol Last Admin: 02/28/19 08:51 Dose: 40 mg Hydrochlorothiazide (Microzide) 12.5 mg PO DAILY [facility] Last Admin: 02/28/19 08:52 Dose: 12.5 mg Ceftriaxone Sodium 1 gm/ (Sodium Chloride) 100 mls @ 100 mls/hr IVPB DAILY [facility]; Protocol Last Admin: 02/28/19 08:50 Dose: 100 mls/hr Ibuprofen (Motrin Tab) 400 mg PO Q6H PRN PRN Reason: Pain, moderate (4-7) Last Admin: 02/28/19 16:56 Dose: 400 mg Ketorolac Tromethamine (Toradol) 30 mg IVP Q6 PRN PRN Reason: Pain, severe (8-10) Last Admin: 02/27/19 08:38 Dose: 30 mg Losartan Potassium (Cozaar) 100 mg PO DAILY [facility] Last Admin: 02/28/19 08:54 Dose: 100 mg Pantoprazole Sodium (Protonix Ec Tab) 40 mg PO DAILY [facility] Last Admin: 02/28/19 08:52 Dose: 40 mg - Labs Labs: 02/28/19 06:10 02/27/19 05:45 PT 14.1 Seconds (9.8-13.1) H 02/25/19 17:55 INR 1.2 02/25/19 17:55 APTT 30.4 Seconds (25.6-37.1) 02/25/19 17:55 Attending/Attestation - Attestation I have personally seen and examined this patient.: Yes I have fully participated in the care of the patient.: Yes I have reviewed all pertinent clinical information, including history, physical exam and plan: Yes Notes (Text): Acute Epididymo-orchitis HTN -Pain and swelling improving, right scrotum still swollen and tender but marked ly improved - leukocytosis resolved, pt afebrile - Urine and Blood c/s : negative so far - cont IV Ceftriaxone and Doxycycline -cont Home anti HTN meds - no abscess on CT scan -Urology consulted
--- NOTE | 2019-02-28 20:06 | CP.PCM.PN ---
Subjective - Date & Time of Evaluation Date of Evaluation: 02/28/19 Time of Evaluation: 20:05 - Subjective Subjective: urology note dictated Objective - Vital Signs/Intake and Output Vital Signs (last 24 hours): Temp Pulse Resp BP Pulse Ox 97.8 F 62 18 122/82 99 02/28/19 17:00 02/28/19 17:00 02/28/19 17:00 02/28/19 17:00 02/28/19 17:00 - Medications Medications: Current Medications Acetaminophen (Tylenol 325mg Tab) 650 mg PO Q4 PRN PRN Reason: Pain, Mild (1-3) Docusate Sodium (Colace) 100 mg PO BID [facility] Last Admin: 02/28/19 16:55 Dose: 100 mg Doxycycline Hyclate (Doryx) 100 mg PO Q12 [facility]; Protocol Last Admin: 02/28/19 08:52 Dose: 100 mg Enoxaparin Sodium (Lovenox) 40 mg SC DAILY [facility]; Protocol Last Admin: 02/28/19 08:51 Dose: 40 mg Hydrochlorothiazide (Microzide) 12.5 mg PO DAILY [facility] Last Admin: 02/28/19 08:52 Dose: 12.5 mg Ceftriaxone Sodium 1 gm/ (Sodium Chloride) 100 mls @ 100 mls/hr IVPB DAILY [facility]; Protocol Last Admin: 02/28/19 08:50 Dose: 100 mls/hr Ibuprofen (Motrin Tab) 400 mg PO Q6H PRN PRN Reason: Pain, moderate (4-7) Last Admin: 02/28/19 16:56 Dose: 400 mg Ketorolac Tromethamine (Toradol) 30 mg IVP Q6 PRN PRN Reason: Pain, severe (8-10) Last Admin: 02/27/19 08:38 Dose: 30 mg Losartan Potassium (Cozaar) 100 mg PO DAILY [facility] Last Admin: 02/28/19 08:54 Dose: 100 mg Pantoprazole Sodium (Protonix Ec Tab) 40 mg PO DAILY [facility] Last Admin: 02/28/19 08:52 Dose: 40 mg - Labs Labs: 02/28/19 06:10 02/27/19 05:45 PT 14.1 Seconds (9.8-13.1) H 02/25/19 17:55 INR 1.2 02/25/19 17:55 APTT 30.4 Seconds (25.6-37.1) 02/25/19 17:55
--- NOTE | 2019-03-01 00:21 | PN ---
DATE: 02/28/2019 This patient today is seen for continued followup of acute right epididymo-orchitis. The patient was admitted over the weekend. He had a CT scan done of the abdomen and pelvis showing no presence of abscess in the area of the acute right epididymo-orchitis. The patient initially when came in had an elevated white count of almost 13,000. He remained that way for the first two days of his admission. As of 02/27/2019, the body responding to the dual antibiotic treatment with Vibramycin and Rocephin. His current white count now has been 9.4 and 9.5 in the past 48 hours. The patient clinically is feeling better. The induration is persistent on the right testicular area; however, it is less intense and much less uncomfortable than on first admission. The induration and hyperemia of the right inguinal area has practically resolved. The patient is able to void well. Several etiologies for this condition could include the bacterial infection as a reason for the onset, could be unsuspecting trauma to the area. In clinical evaluation, he has significant amount of redundant foreskin which can lead him to be more susceptible to a urinary infection as an etiology which then proceeded to involve the testicle and scrotum on the right side. The patient is advised to maintain significant improved hygiene and at this time realizing that his white count has been normal, I recommend one more dose of Rocephin and tetracycline in the morning and a repeat blood count. If it remains stable, then the patient urologically could be discharged with a prescription for Cipro to be taken twice a day for a minimum of two weeks and follow up in the office perhaps one week after this discharge to make sure that he is on correct trajectory. The patient was advised not to return to any significant physical activity until after his first office followup after discharge. Darrel Lainez MD
[2019-03-01 06:33] LABS: BASO % 0.4 % (0.0-2.0); EOS # 0.1 K/uL (0.0-0.7); EOS % 1.3 % (0.0-4.0); HEMOGLOBIN 13.7 g/dL (12.0-18.0); LYMPH # 1.4 K/uL (1.0-4.3); LYMPH % 18.2 % (20.0-40.0); MEAN CELL VOLUME 88.3 fl (80.0-94.0); MEAN CORPUSCULAR HEMOGLOBIN 28.8 pg (27.0-31.0); MEAN CORPUSCULAR HGB CONC 32.6 g/dL (33.0-37.0); MEAN PLATELET VOLUME 7.5 fl (7.2-11.7); MONO # 0.8 K/uL (0.0-0.8); MONO % 10.9 % (0.0-10.0); NEUT # 5.2 K/uL (1.8-7.0); NEUT % 69.2 % (50.0-75.0); NRBC % 0.1 % (0.0-0.0); RBC 4.76 Mil/uL (4.40-5.90); RED CELL DISTRIBUTION WIDTH 12.6 % (11.5-14.5); WHITE BLOOD COUNT 7.5 K/uL (4.8-10.8)
[2019-03-01 06:37] LABS: BLOOD UREA NITROGEN 17 mg/dl (9-20); CALCIUM 9.2 mg/dL (8.4-10.2); GFR NON-AFRICAN AMERICAN > 60
--- NOTE | 2019-03-01 07:58 | CP.PCM.DIS ---
<Jaymie Venegas - Last Filed: 03/01/19 09:59> Provider - Provider Date of Admission: 02/25/19 17:29 Attending physician: Arash Resendez MD Primary care physician: Non [facility] Provider Consults: 02/25/19 23:34 Urology Consult Routine Comment: Consulting Provider: Darrel Lainez Consulting Physician: Darrel Lainez Reason for Consult: Orchitis Time Spent in preparation of Discharge (in minutes): 10 Diagnosis - Discharge Diagnosis (1) Orchitis Status: Acute Comment: Acute. resolving afebrile. c/w antibiotics outpt. Omnicef 300mg BID for 14days (2) Cystitis Status: Acute Comment: Acute resolved Hospital Course - Lab Results Lab Results: Micro Results 02/25/19 18:32 Blood-Venous Blood Culture - Preliminary NO GROWTH AFTER 3 DAYS 02/25/19 17:44 Blood-Venous Blood Culture - Preliminary NO GROWTH AFTER 3 DAYS 02/25/19 21:01 Urine Random Urine Culture - Final No Growth (<1,000 CFU/ML) Most Recent Lab Values WBC 7.5 K/uL (4.8-10.8) 03/01/19 05:35 RBC 4.76 Mil/uL (4.40-5.90) 03/01/19 05:35 Hgb 13.7 g/dL (12.0-18.0) 03/01/19 05:35 Hct 42.0 % (35.0-51.0) 03/01/19 05:35 MCV 88.3 fl (80.0-94.0) 03/01/19 05:35 MCH 28.8 pg (27.0-31.0) 03/01/19 05:35 MCHC 32.6 g/dL (33.0-37.0) L 03/01/19 05:35 RDW 12.6 % (11.5-14.5) 03/01/19 05:35 Plt Count 452 K/uL (130-400) H 03/01/19 05:35 MPV 7.5 fl (7.2-11.7) 03/01/19 05:35 Neut % (Auto) 69.2 % (50.0-75.0) 03/01/19 05:35 Lymph % (Auto) 18.2 % (20.0-40.0) L 03/01/19 05:35 [place] % (Auto) 10.9 % (0.0-10.0) H 03/01/19 05:35 Eos % (Auto) 1.3 % (0.0-4.0) 03/01/19 05:35 Baso % (Auto) 0.4 % (0.0-2.0) 03/01/19 05:35 Neut # (Auto) 5.2 K/uL (1.8-7.0) 03/01/19 05:35 Lymph # (Auto) 1.4 K/uL (1.0-4.3) 03/01/19 05:35 [place] # (Auto) 0.8 K/uL (0.0-0.8) 03/01/19 05:35 Eos # (Auto) 0.1 K/uL (0.0-0.7) 03/01/19 05:35 Baso # (Auto) 0.0 K/uL (0.0-0.2) 03/01/19 05:35 Neutrophils % (Manual) 81 % (42-75) H 02/26/19 05:35 Lymphocytes % (Manual) 10 % (20-50) L 02/26/19 05:35 Monocytes % (Manual) 8 % (0-10) 02/26/19 05:35 Eosinophils % (Manual) 1 % (0-7) 02/26/19 05:35 Platelet Estimate Normal (NORMAL) 02/26/19 05:35 RBC Morphology Normal (NORMAL) 02/26/19 05:35 PT 14.1 Seconds (9.8-13.1) H 02/25/19 17:55 INR 1.2 02/25/19 17:55 APTT 30.4 Seconds (25.6-37.1) 02/25/19 17:55 pO2 17 mm/Hg (30-55) L 02/25/19 17:50 VBG pH 7.32 (7.32-7.43) 02/25/19 17:50 VBG pCO2 61 mmHg (40-60) H 02/25/19 17:50 VBG HCO3 25.6 mmol/L 02/25/19 17:50 VBG Total CO2 33.3 mmol/L (22-28) H 02/25/19 17:50 VBG O2 Sat (Calc) 23.3 % (40-65) L 02/25/19 17:50 VBG Base Excess 3.6 mmol/L (0.0-2.0) H 02/25/19 17:50 VBG Potassium 4.4 mmol/L (3.6-5.2) 02/25/19 17:50 Sodium 140.0 mmol/L (132-148) 02/25/19 17:50 Chloride 104.0 mmol/L (98-107) 02/25/19 17:50 Glucose 95 mg/dL (75-110) 02/25/19 17:50 Lactate 1.4 mmol/L (0.7-2.1) 02/25/19 17:50 FiO2 21.0 % 02/25/19 17:50 Sodium 138 mmol/l (132-148) 03/01/19 05:35 Potassium 4.3 MMOL/L (3.6-5.0) 03/01/19 05:35 Chloride 99 mmol/L (98-107) 03/01/19 05:35 Carbon Dioxide 32 mmol/L (22-30) H 03/01/19 05:35 Anion Gap 11 (10-20) 03/01/19 05:35 BUN 17 mg/dl (9-20) 03/01/19 05:35 Creatinine 1.0 mg/dl (0.8-1.5) 03/01/19 05:35 Est GFR ( Amer) > 60 03/01/19 05:35 Est GFR (Non-Af Amer) > 60 03/01/19 05:35 POC Glucose (mg/dL) 107 mg/dL (65-110) 02/26/19 10:55 Random Glucose 94 mg/dL (75-110) 03/01/19 05:35 Calcium 9.2 mg/dL (8.4-10.2) 03/01/19 05:35 Total Bilirubin 0.3 mg/dl (0.2-1.3) 02/25/19 17:55 AST 37 U/L (17-59) 02/25/19 17:55 ALT 47 U/L (21-72) 02/25/19 17:55 Alkaline Phosphatase 74 U/L (38-126) 02/25/19 17:55 Total Protein 7.3 G/DL (6.3-8.2) 02/25/19 17:55 Albumin 3.9 g/dL (3.5-5.0) 02/25/19 17:55 Globulin 3.4 gm/dL (2.2-3.9) 02/25/19 17:55 Albumin/Globulin Ratio 1.1 (1.0-2.1) 02/25/19 17:55 Venous Blood Potassium 4.4 mmol/L (3.6-5.2) 02/25/19 17:50 Urine Color Yellow (YELLOW) 02/25/19 20:53 Urine Clarity Slighty-cloudy (Clear) 02/25/19 20:53 Urine pH 6.0 (5.0-8.0) 02/25/19 20:53 Ur Specific [employer] 1.010 (1.003-1.030) 02/25/19 20:53 Urine Protein 100 mg/dL (NEGATIVE) 02/25/19 20:53 Urine Glucose (UA) Neg mg/dL (NEGATIVE) 02/25/19 20:53 Urine Ketones Negative mg/dL (NEGATIVE) 02/25/19 20:53 Urine Blood Large (NEGATIVE) 02/25/19 20:53 Urine Nitrate Negative (NEGATIVE) 02/25/19 20:53 Urine Bilirubin Negative (NEGATIVE) 02/25/19 20:53 Urine Urobilinogen 0.2-1.0 mg/dL (0.2-1.0) 02/25/19 20:53 Ur Leukocyte Esterase Small [place]/uL (Negative) 02/25/19 20:53 Urine RBC (Auto) 33 /hpf (0-3) H 02/25/19 20:53 Urine Microscopic WBC 5 /hpf (0-5) 02/25/19 20:53 Ur Squamous Epith Cells 3 /hpf (0-5) 02/25/19 20:53 Urine Bacteria Rare (<OCC) 02/25/19 20:53 C.trachomatis RNA (TMA) Not detected (Not Detected) 02/26/19 16:40 N.gonorrhoeae RNA (TMA) Not detected (Not Detected) 02/26/19 16:40 - Hospital Course Hospital Course: 59 yo male with history of HTN admitted with pain and swelling of the right scrotum associated with fever not responding to oral antibiotics levaquin, dysuria, difficulty urinating and hematuria admitted for IV antibiotics for R sided Orchitis. Treated with cefrtriaxone and Doxycycline for (4days). Urine culture negative, blood cx negative GC/CHL negative. Urology consulted Dr. Lainez. Pt pain controlled, afebrile, no leukocytosis, denies urethral discharge,dysuria, hematuria hemodynamically stable for discharge elevate scrotu, and D/c with Omnicef 300mg PO BID for 2 weeks with outpt follow up with PMD and urology. Discharge Exam - Head Exam Head Exam: NORMAL INSPECTION - Eye Exam Eye Exam: EOMI - ENT Exam ENT Exam: Mucous Membranes Moist - Respiratory Exam Respiratory Exam: Clear to PA & Lateral. absent: Rales, Rhonchi, Wheezes - Cardiovascular Exam Cardiovascular Exam: RRR, +S1, +S2 - GI/Abdominal Exam GI & Abdominal Exam: Normal Bowel Sounds, Soft. absent: Tenderness - Exam Additional comments: Tenderness R inguinal region, R testicle tender and hard to palpation, no urethral discharge - Extremities Exam Extremities exam: normal inspection - Neurological Exam Neurological exam: Alert, Oriented x3 Discharge Plan - Discharge Medications Prescriptions: Cefdinir [Omnicef] 300 mg PO BID 14 Days #28 cap - Follow Up Plan Condition: FAIR Disposition: HOME/ ROUTINE Instructions: Urinary Tract Infection, Adult (DC), Epididymitis (DC) Additional Instructions: follow up with dr lainez 1 week Referrals: Darrel Lainez MD [Medical Doctor] - Rafia Tavarez MD [Family Provider] - <Jessica Prasad - Last Filed: 03/01/19 13:44> Provider - Provider Date of Admission: 02/25/19 17:29 Attending physician: Arash Resendez MD Primary care physician: Non [facility] Provider Consults: 02/25/19 23:34 Urology Consult Routine Comment: Consulting Provider: Darrel Lainez Consulting Physician: Darrel Lainez Reason for Consult: Orchitis Hospital Course - Lab Results Lab Results: Micro Results 02/25/19 18:32 Blood-Venous Blood Culture - Preliminary NO GROWTH AFTER 3 DAYS 02/25/19 17:44 Blood-Venous Blood Culture - Preliminary NO GROWTH AFTER 3 DAYS 02/25/19 21:01 Urine Random Urine Culture - Final No Growth (<1,000 CFU/ML) Most Recent Lab Values WBC 7.5 K/uL (4.8-10.8) 03/01/19 05:35 RBC 4.76 Mil/uL (4.40-5.90) 03/01/19 05:35 Hgb 13.7 g/dL (12.0-18.0) 03/01/19 05:35 Hct 42.0 % (35.0-51.0) 03/01/19 05:35 MCV 88.3 fl (80.0-94.0) 03/01/19 05:35 MCH 28.8 pg (27.0-31.0) 03/01/19 05:35 MCHC 32.6 g/dL (33.0-37.0) L 03/01/19 05:35 RDW 12.6 % (11.5-14.5) 03/01/19 05:35 Plt Count 452 K/uL (130-400) H 03/01/19 05:35 MPV 7.5 fl (7.2-11.7) 03/01/19 05:35 Neut % (Auto) 69.2 % (50.0-75.0) 03/01/19 05:35 Lymph % (Auto) 18.2 % (20.0-40.0) L 03/01/19 05:35 [place] % (Auto) 10.9 % (0.0-10.0) H 03/01/19 05:35 Eos % (Auto) 1.3 % (0.0-4.0) 03/01/19 05:35 Baso % (Auto) 0.4 % (0.0-2.0) 03/01/19 05:35 Neut # (Auto) 5.2 K/uL (1.8-7.0) 03/01/19 05:35 Lymph # (Auto) 1.4 K/uL (1.0-4.3) 03/01/19 05:35 [place] # (Auto) 0.8 K/uL (0.0-0.8) 03/01/19 05:35 Eos # (Auto) 0.1 K/uL (0.0-0.7) 03/01/19 05:35 Baso # (Auto) 0.0 K/uL (0.0-0.2) 03/01/19 05:35 Neutrophils % (Manual) 81 % (42-75) H 02/26/19 05:35 Lymphocytes % (Manual) 10 % (20-50) L 02/26/19 05:35 Monocytes % (Manual) 8 % (0-10) 02/26/19 05:35 Eosinophils % (Manual) 1 % (0-7) 02/26/19 05:35 Platelet Estimate Normal (NORMAL) 02/26/19 05:35 RBC Morphology Normal (NORMAL) 02/26/19 05:35 PT 14.1 Seconds (9.8-13.1) H 02/25/19 17:55 INR 1.2 02/25/19 17:55 APTT 30.4 Seconds (25.6-37.1) 02/25/19 17:55 pO2 17 mm/Hg (30-55) L 02/25/19 17:50 VBG pH 7.32 (7.32-7.43) 02/25/19 17:50 VBG pCO2 61 mmHg (40-60) H 02/25/19 17:50 VBG HCO3 25.6 mmol/L 02/25/19 17:50 VBG Total CO2 33.3 mmol/L (22-28) H 02/25/19 17:50 VBG O2 Sat (Calc) 23.3 % (40-65) L 02/25/19 17:50 VBG Base Excess 3.6 mmol/L (0.0-2.0) H 02/25/19 17:50 VBG Potassium 4.4 mmol/L (3.6-5.2) 02/25/19 17:50 Sodium 140.0 mmol/L (132-148) 02/25/19 17:50 Chloride 104.0 mmol/L (98-107) 02/25/19 17:50 Glucose 95 mg/dL (75-110) 02/25/19 17:50 Lactate 1.4 mmol/L (0.7-2.1) 02/25/19 17:50 FiO2 21.0 % 02/25/19 17:50 Sodium 138 mmol/l (132-148) 03/01/19 05:35 Potassium 4.3 MMOL/L (3.6-5.0) 03/01/19 05:35 Chloride 99 mmol/L (98-107) 03/01/19 05:35 Carbon Dioxide 32 mmol/L (22-30) H 03/01/19 05:35 Anion Gap 11 (10-20) 03/01/19 05:35 BUN 17 mg/dl (9-20) 03/01/19 05:35 Creatinine 1.0 mg/dl (0.8-1.5) 03/01/19 05:35 Est GFR ( Amer) > 60 03/01/19 05:35 Est GFR (Non-Af Amer) > 60 03/01/19 05:35 POC Glucose (mg/dL) 107 mg/dL (65-110) 02/26/19 10:55 Random Glucose 94 mg/dL (75-110) 03/01/19 05:35 Calcium 9.2 mg/dL (8.4-10.2) 03/01/19 05:35 Total Bilirubin 0.3 mg/dl (0.2-1.3) 02/25/19 17:55 AST 37 U/L (17-59) 02/25/19 17:55 ALT 47 U/L (21-72) 02/25/19 17:55 Alkaline Phosphatase 74 U/L (38-126) 02/25/19 17:55 Total Protein 7.3 G/DL (6.3-8.2) 02/25/19 17:55 Albumin 3.9 g/dL (3.5-5.0) 02/25/19 17:55 Globulin 3.4 gm/dL (2.2-3.9) 02/25/19 17:55 Albumin/Globulin Ratio 1.1 (1.0-2.1) 02/25/19 17:55 Venous Blood Potassium 4.4 mmol/L (3.6-5.2) 02/25/19 17:50 Urine Color Yellow (YELLOW) 02/25/19 20:53 Urine Clarity Slighty-cloudy (Clear) 02/25/19 20:53 Urine pH 6.0 (5.0-8.0) 02/25/19 20:53 Ur Specific [employer] 1.010 (1.003-1.030) 02/25/19 20:53 Urine Protein 100 mg/dL (NEGATIVE) 02/25/19 20:53 Urine Glucose (UA) Neg mg/dL (NEGATIVE) 02/25/19 20:53 Urine Ketones Negative mg/dL (NEGATIVE) 02/25/19 20:53 Urine Blood Large (NEGATIVE) 02/25/19 20:53 Urine Nitrate Negative (NEGATIVE) 02/25/19 20:53 Urine Bilirubin Negative (NEGATIVE) 02/25/19 20:53 Urine Urobilinogen 0.2-1.0 mg/dL (0.2-1.0) 02/25/19 20:53 Ur Leukocyte Esterase Small [place]/uL (Negative) 02/25/19 20:53 Urine RBC (Auto) 33 /hpf (0-3) H 02/25/19 20:53 Urine Microscopic WBC 5 /hpf (0-5) 02/25/19 20:53 Ur Squamous Epith Cells 3 /hpf (0-5) 02/25/19 20:53 Urine Bacteria Rare (<OCC) 02/25/19 20:53 C.trachomatis RNA (TMA) Not detected (Not Detected) 02/26/19 16:40 N.gonorrhoeae RNA (TMA) Not detected (Not Detected) 02/26/19 16:40 Attending/Attestation - Attestation I have personally seen and examined this patient.: Yes I have fully participated in the care of the patient.: Yes I have reviewed all pertinent clinical information, including history, physical exam and plan: Yes Notes (Text): Acute Epididymo-orchitis HTN -Pain and swelling improved, no dysuria, - leukocytosis resolved, pt afebrile - Urine and Blood c/s : negative so far - GC/Chlamydia : negative - Received IV Ceftriaxone and Doxycycline -cont Home anti HTN meds - no abscess on CT scan -Urology consulted- cleared pt for d/c - will d/c pt home on PO Omnicef x 2 wks
[2019-03-01 08:23] VITALS: BP 135/89; PULSE 72; RESP 20; TEMP 97.3; O2SAT 96
[2019-03-01] MEDS: Enoxaparin 40 mg Syringe SC SCH (09:11)
[2019-03-01] MEDS: Pantoprazole 40 mg EC Tab PO SCH (09:12)
== END 2019-03-01 12:45 | disposition home or self-care (01) | DRG 728 ==
LOC: SUPCPDRO 16:58 → H.ER 16:58 → H.ERHOLD 17:29 → H.MEDSURG1 22:46
DX: N45.3 Epididymo-orchitis (principal); I10 Essential (primary) hypertension; N47.8 Other disorders of prepuce; R31.9 Hematuria, unspecified; M19.90 Unspecified osteoarthritis, unspecified site